=== PATIENT | female | born 1960 ===

== ENCOUNTER 2021-07-14 11:40 | Outpatient (CLI) | payer OTHER, SELFPAY ==
--- NOTE | 2021-07-14 11:47 | MR_ITS ---
WS: [id number] MRI NECK with and without CONTRAST. COMPARISON: None Multiplanar, multisequence imaging is performed with and without contrast. Sagittal and axial T1 fat sat sequences post-MultiHance 15 cc IV. T1 low signal and T2 increased signal mass with moderate enhancement centered posterior to the RIGHT submandibular gland, medial to the parotid gland and inseparable from a portion the sternocleidomasto id muscle. This mass is inseparable from the deep portion of the RIGHT parotid gland. Mass extends ov er a length of 3.2 cm x 2.1 x 2.3 cm. No additional masses are identified. No mass effect tongue base or within the larynx. There are a few benign lymph nodes along the cervical chains. There is very mild asymmetry with enhancement involving the RIGHT palatine tonsil. Contrast images me asuring 19 x 15 x 11 mm. MR/MR orbit face neck wo/w* [id number] IMPRESSION: 1. Enhancing soft tissue mass along the RIGHT cervical chain at level IIa екатерина ures 3.2 x 2.1 x 2.3 cm. Abnormal cluster of lymph nodes versus parotid gland m ass. Inseparable from the deep RIGHT parotid gland. 2. There some very minimal asymmetry involving the RIGHT palatine tonsil which should be further evaluated by direct visualization.
[2021-07-14 12:52] LABS: Blood Urea Nitrogen 11 mg/dL (8-23); Glomerular Filtration Rate 84.8 mL/min (90-130)
[2021-07-14] MEDS: gadobenate dimeglumine 20 mL vial IV (12:52)
== END 2021-07-14 11:41 | disposition home or self-care (01) ==
LOC: RADSHAW 11:44
PROVIDERS: PCP Family Medicine; Visit Provider Specialist
DX: C44.92 Squamous cell carcinoma of skin, unspecified (principal); R22.1 Localized swelling, mass and lump, neck
CPT/HCPCS: 36415; 70543; 82565; 84520; A9577

== ENCOUNTER 2022-03-12 10:35 | Outpatient (RCR) | payer OTHER, SELFPAY | END 2022-03-31 23:59 | disposition home or self-care (01) | LOC: SST 10:35 | PROVIDERS: PCP Family Medicine | DX: R13.10 Dysphagia, unspecified (principal); I89.0 Lymphedema, not elsewhere classified; C44.42 Squamous cell carcinoma of skin of scalp and neck; C09.9 Malignant neoplasm of tonsil, unspecified | CPT/HCPCS: 92507; 92524 ==

== ENCOUNTER → 2022-10-23 13:51 | Outpatient (BNVA) | payer OTHER, SELFPAY | PROVIDERS: PCP Family Medicine; Visit Provider Family Medicine | DX: Z00.00 Encounter for general adult medical examination without abnormal findings (principal) | CPT/HCPCS: 80053; 80061; 85025 ==

== ENCOUNTER → 2023-04-18 13:31 | Outpatient (BNVA) | payer MEDICARE, SELFPAY | PROVIDERS: PCP Family Medicine; Visit Provider Family Medicine | DX: Z85.819 Personal history of malignant neoplasm of unspecified site of lip, oral cavity, and pharynx (principal); R63.4 Abnormal weight loss | CPT/HCPCS: 80053; 82607; 84443; 85025; 86140 ==

== ENCOUNTER → 2024-06-18 16:14 | Outpatient (BNVA) | payer MEDICARE, SELFPAY | PROVIDERS: PCP Family Medicine; Visit Provider Family Medicine | DX: I10 Essential (primary) hypertension (principal); Z85.819 Personal history of malignant neoplasm of unspecified site of lip, oral cavity, and pharynx; Z00.00 Encounter for general adult medical examination without abnormal findings; E11.9 Type 2 diabetes mellitus without complications | CPT/HCPCS: 80053; 80061; 84443; 85025 ==

== ENCOUNTER → 2025-08-03 13:54 | Outpatient (BNVA) | payer MEDICARE, SELFPAY | PROVIDERS: PCP Family Medicine; Visit Provider Family Medicine | DX: Z85.819 Personal history of malignant neoplasm of unspecified site of lip, oral cavity, and pharynx (principal); R63.4 Abnormal weight loss | CPT/HCPCS: 80053; 84443; 85025; 86140 ==

== ENCOUNTER 2025-09-13 10:46 | Outpatient (CLI) | payer MEDICARE, SELFPAY ==
--- NOTE | 2025-09-13 10:54 | CT_ITS ---
WS: [id number] CT NECK WITH CONTRAST HISTORY: MALIGNANT NEOPLASM TONSILLAR FOSSA TECHNIQUE: Contiguous 2 mm axial images are performed through the neck with intravenous contrast. Sagittal and coronal reformats are also submitted. All CT scans at [facility] use at least one of these dose optimization techniques: automated exposure control; mA and/or kV adjustment per patient size (includes targeted exams where dose is matched to clinical indication); or iterative reconstruction. CONTRAST: CONTRAST: Omnipaque 350; 100 mL IV. DLP: 135.26 mGy.cm COMPARISON: MRI face and neck 07/14/2021. Surgical resection RIGHT neck since the prior study of 07/14/2025. There are surgical clips present. RIGHT submandibular gland is very small or partially resected. There is an area of soft tissue thickening and mild asymmetric enhancement extending along the RIGHT mylohyoid muscle. The RIGHT mylohyoid muscle is larger in size with more enhancement than on the LEFT. There is additional soft tissue prominence in the RIGHT tonsillar fossa which does not enhance. This is asymmetric to the LEFT and at the site of the previously described neoplasm on 07/14/2021. No additional areas of abnormal enhancement. Mildly enlarged ovoid hypervascular lymph nodes at level 1B on the LEFT with the largest lymph node is 1.3 cm. No additional adenopathy identified. Thyroid gland is normal. No osseous abnormalities. Visualized portions of the skull base demonstrate no abnormalities. Orbits and globes are within normal limits. No soft tissue masses. Small mucous retention cysts in the floors of the maxillary sinuses. No air- fluid levels. Lung apices are clear. CT/CT neck w con* [id number] IMPRESSION: 1. Postsurgical resection RIGHT neck. 2. Mild asymmetric with enlargement of the RIGHT mylohyoid muscle with mild en hancement. This should be further evaluated for recurrent tumor. There is soft tissue prominence near the RIGHT tonsillar fossa which does not enhance. This s hould be reevaluated also by direct visualization. 3. Enlarged hypervascular LEFT level 1B lymph nodes. Largest lymph node is 1.3 cm.
[2025-09-13] MEDS: iohexol 350 mg/mL 500 mL Btl (per mL) IV (11:12)
== END 2025-09-13 10:47 | disposition home or self-care (01) ==
LOC: RAD 10:49
PROVIDERS: PCP Family Medicine; Visit Provider Specialist
DX: R59.0 Localized enlarged lymph nodes (principal); Z98.890 Other specified postprocedural states; M62.89 Other specified disorders of muscle; C09.0 Malignant neoplasm of tonsillar fossa; J34.1 Cyst and mucocele of nose and nasal sinus
CPT/HCPCS: 70491

== ENCOUNTER 2025-09-17 14:15 | Outpatient (CLI) | payer MEDICARE, SELFPAY ==
--- NOTE | 2025-09-17 14:20 | PETR_ITS ---
PROCEDURE INFORMATION: Exam: PET/CT Skull Base to Mid-thigh Exam date and time: 09/17/2025 3:34 PM Age: 65 years old Clinical indication: Condition or disease; Primary cancer: Malignant neoplasm tonsilar fossa; Prior surgery; Surgery date: 6+ months; Surgery type: Throat, dental implants LABS AND CLINICAL REPORTS: Glucose: 135 mg/dl Treatment strategy for malignancy (PET staging): Initial Staging (PI) TECHNIQUE: Imaging protocol: Following at least four-hour fasting and following the injection of radiopharmaceutical, low dose CT images were obtained. Then, PET images were obtained. Attenuation corrected images were constructed using the CT scan. Fused images of PET and CT were reviewed. The standardized uptake values (SUV) reported below are maximum values within a region of interest, expressed in gm/ml. Exam includes orbital meatal line to mid-thigh. SUV normalization method: BodyWeight Radiopharmaceutical: 11.17 mCi F-18 FDG (Fluorodeoxyglucose), IV. Time of imaging post radiopharmaceutical administration: 53 minutes Injection site: RIGHT AC COMPARISON: CT neck w con* [id number] 09/13/2025 11:04 AM, MRI neck 09/13/2025, PET-CT 01/18/2016 FINDINGS: Brain: Visualized brain has normal physiologic uptake. Pharynx: No abnormal uptake. Larynx: No abnormal uptake. Lungs, pleura and trachea: Comparison is made with the prior PET-CT unless otherwise stated. A similar solid right middle lobe nodule measuring 1.6 x [address] series 202, image 116 demonstrates an SUV max 1.2 (previously 0.8). A posterior right middle lobe nodule based on the major fissure measuring 1.3 x 0.8 cm with a ground-glass appearance on series 202, image 103 is new, SUV max 0.7. A new appearing solid anterior right lower lobe 3-4 mm nodule in series 202, image 98 is not radiotracer avid. A probable new ground-glass right upper lobe [address] image 88 is not radiotracer avid. A left lower lobe calcified granuloma is noted. Heart: Normal physiologic uptake. Mediastinal space: No abnormal uptake. Liver: No abnormal uptake. Gallbladder and biliary ducts: No abnormal uptake. Pancreas: No abnormal uptake. Spleen: No abnormal uptake. Adrenal glands: A similar in size left adrenal nodule measuring 1.6 cm in diameter on series 202, image 141 demonstrates an SUV max 3.2 (previously 2.5). Unremarkable right adrenal gland. Kidneys and ureters: Normal physiologic uptake. Stomach and bowel: Uptake within the proximal stomach demonstrates an SUV max 6.1 (previously 2.3) on image 125, likely physiologic or inflammatory. Colonic diverticula are present. Vasculature: There are multifocal regions of atherosclerotic calcification. Lymph nodes: No radiotracer avid lymph nodes in the neck are present. A lymph node adjacent to the inferior margin of the mandible on the left measures 8 mm in short axis on image 34 and is not radiotracer avid. A similar in size right axillary lymph node measuring 6 mm on image 61 of series 202 is present. This region demonstrates new uptake with an SUV max 11.9. This may alternatively represent physiologic uptake within adjacent vessel. No additional areas of uptake within lymph nodes are identified. Uptake posterior to the right pectoralis musculature on series 202, image 57 is noted, SUV max 3.4, and appears to represent physiologic activity within a vascular structure rather than a lymph node. Small benign-appearing non radiotracer avid calcified left hilar lymph nodes are present. Skeleton: No abnormal uptake in the visualized axial and appendicular skeleton. Degenerative changes in the spine are identified. Soft tissues: Numerous surgical clips in the right neck are identified with interval resolution of previously noted elevated uptake in this region. Right erector spinae muscle uptake in the mid inferior thoracic spine is likely physiologic or inflammatory, with no corresponding lesion on the CT images. Small foci of uptake in the anterior proximal right arm appear to be intravascular and physiologic, likely associated with the right upper extremity injection of radiotracer. METRICS: Mediastinal blood pool: SUV max 1.9, SUV mean 1.6 Liver uptake: SUV max 2.1, SUV mean 1.9 PET/PET skull to thigh SUBS [id number] IMPRESSION: 1. Postoperative changes in the right neck are noted with interval resolution of previously noted uptake in the region of malignancy compared to the prior PET-CT. 2. A non pathologically enlarged right axillary lymph node is identified with elevated uptake in this region concerning for possible malignancy. This appearance may alternatively represent uptake within an adjacent vessel associated with the right upper extremity radiotracer injection. 3. Right-sided solid and ground-glass pulmonary nodules are noted without elevated uptake. Assessment of small nodules and sub-solid nodules can be limited by PET-CT. 4. Slight interval increase in low-level uptake within a left adrenal nodule, which could be related to a benign adenoma. A metastatic etiology is less likely. 5. Proximal gastric uptake is likely physiologic or inflammatory. A malignant etiology is less likely. 6. Additional nonurgent findings as detailed above.
== END 2025-09-17 14:16 | disposition home or self-care (01) ==
LOC: RAD 14:17
PROVIDERS: PCP Family Medicine; Visit Provider Specialist
DX: C09.0 Malignant neoplasm of tonsillar fossa (principal); R91.8 Other nonspecific abnormal finding of lung field; J84.10 Pulmonary fibrosis, unspecified; E27.9 Disorder of adrenal gland, unspecified; E27.8 Other specified disorders of adrenal gland; R93.3 Abnormal findings on diagnostic imaging of other parts of digestive tract; K57.30 Diverticulosis of large intestine without perforation or abscess without bleeding; Z98.890 Other specified postprocedural states; R59.0 Localized enlarged lymph nodes; R93.89 Abnormal findings on diagnostic imaging of other specified body structures; D35.02 Benign neoplasm of left adrenal gland; R94.7 Abnormal results of other endocrine function studies
CPT/HCPCS: 78815; A9552

== ENCOUNTER 2025-09-23 10:40 | Oncology outpatient (recurring) (ONCR) | payer MEDICARE, SELFPAY ==
[2025-09-16 10:01] LABS: Hematocrit 40.1 % (36-47); Hemoglobin 13.20 g/dL (11.27-16.99); Mean Corpuscular HGB Conc 32.9 g/dL (30-55); Mean Corpuscular Hemoglobin 32.4 pg (27-33); Mean Corpuscular Volume 98.3 fl (85-98); Nucleated Red Blood Cells % 0 %; Platelet Count 269 10^3/cmm (157-399); Red Blood Count 4.08 10^6/uL (3.85-5.65); White Blood Count 4.83 10^3/uL (3.29-11.43)
[2025-09-16 10:18] LABS: Alanine Aminotransferase 18 U/L (0-33); Albumin Level 4.0 g/dL (3.5-5.2); Alkaline Phosphatase 95 U/L (35-105); Anion Gap 13.8 (5-19); Aspartate Amino Transferase 25 U/L (0-32); Blood Urea Nitrogen 16 mg/dL (8-23); Calcium 9.3 mg/dL (8.5-10.5); Carbon Dioxide 27 mmol/L (22-29); Chloride 102 mmol/L (98-107); Creatinine Clr Calc Pharmacy 62.2512; Ferritin 166 ng/mL (15-150); Globulin 3.1 g/dL (1.3-4.6); Glucose 92 mg/dL (65-115); Iron 173 ug/dL (37-145); Osmolality Calculated 287 mOsm/kg (285-295); Potassium 4.8 mmol/L (3.5-5.1); Sodium 138 mmol/L (136-145); Total Iron Binding Capacity 277 mcg/dl; Total Protein 7.1 g/dL (6.6-8.7); Unsaturated Iron Binding 104 ug/dL (112-347)
[2025-09-16 10:33] LABS: Vitamin B12 342 pg/mL (232-1245)
[2025-09-23 11:13] LABS: Hematocrit 37.4 % (36-47); Hemoglobin 12.30 g/dL (11.27-16.99); Mean Corpuscular HGB Conc 32.9 g/dL (30-55); Mean Corpuscular Hemoglobin 31.9 pg (27-33); Mean Corpuscular Volume 96.9 fl (85-98); Nucleated Red Blood Cells % 0 %; Platelet Count 242 10^3/cmm (157-399); Red Blood Count 3.86 10^6/uL (3.85-5.65); White Blood Count 4.03 10^3/uL (3.29-11.43)
[2025-09-23 11:29] LABS: Alanine Aminotransferase 14 U/L (0-33); Albumin Level 3.9 g/dL (3.5-5.2); Alkaline Phosphatase 87 U/L (35-105); Anion Gap 12.8 (5-19); Aspartate Amino Transferase 24 U/L (0-32); Blood Urea Nitrogen 10 mg/dL (8-23); Calcium 8.8 mg/dL (8.5-10.5); Carbon Dioxide 26 mmol/L (22-29); Chloride 106 mmol/L (98-107); Creatinine Clr Calc Pharmacy 62.2512; Ferritin 109 ng/mL (15-150); Globulin 3.0 g/dL (1.3-4.6); Glucose 105 mg/dL (65-115); Iron 170 ug/dL (37-145); Osmolality Calculated 289 mOsm/kg (285-295); Potassium 4.8 mmol/L (3.5-5.1); Sodium 140 mmol/L (136-145); Total Iron Binding Capacity 240 mcg/dl; Total Protein 6.9 g/dL (6.6-8.7); Unsaturated Iron Binding 70 ug/dL (112-347)
[2025-09-23 11:44] LABS: Vitamin B12 303 pg/mL (232-1245)
== END 2025-10-01 23:59 | disposition home or self-care (01) ==
PROVIDERS: PCP Family Medicine; Visit Provider Internal Medicine
DX: Z85.819 Personal history of malignant neoplasm of unspecified site of lip, oral cavity, and pharynx (principal); C09.9 Malignant neoplasm of tonsil, unspecified
CPT/HCPCS: 36415; 80053; 82607; 82728; 82746; 83010; 83540; 83550; 83615; 85025; 85045; 99204

== ENCOUNTER 2025-10-07 11:49 | Oncology outpatient (recurring) (ONCR) | payer MEDICARE, SELFPAY | END 2025-10-31 23:59 | disposition home or self-care (01) | PROVIDERS: PCP Family Medicine; Visit Provider Internal Medicine | DX: Z08 Encounter for follow-up examination after completed treatment for malignant neoplasm (principal); Z85.818 Personal history of malignant neoplasm of other sites of lip, oral cavity, and pharynx; D64.9 Anemia, unspecified; Z87.891 Personal history of nicotine dependence; R91.8 Other nonspecific abnormal finding of lung field; Z92.3 Personal history of irradiation; Z92.21 Personal history of antineoplastic chemotherapy | CPT/HCPCS: 99213 ==